=== PATIENT | female | born 1980 | race Caucasian/White ===

== ENCOUNTER 2016-09-22 05:31 | Day surgery (SDC) | payer OTHER ==
[~2016-09-22] VITALS: Ht 167.6 cm; Wt 75.0 kg
--- NOTE | ~2016-09-22 | O ---
[facility] [place] [address] OPERATIVE REPORT Name: DIANE NG Room #: DEP [facility] [place] MZuleyma.#: [id number] Admission: 09/22/16 Attend Phys: Pankaj Boland MD Discharge: 09/22/16 Date of : 84 Report #: [id number] THIS REPORT FOR: //name// CC: Lei Boland DATE OF SERVICE: 09/22/2016 PREOPERATIVE DIAGNOSES: 1. Left knee osteochondral defect, medial femoral condyle. 2. Osteochondral defect, lateral femoral condyle. 3. Osteochondral defect trochlea. POSTOPERATIVE DIAGNOSES: 1. Left knee osteochondral defect, medial femoral condyle. 2. Osteochondral defect, lateral femoral condyle. 3. Osteochondral defect trochlea. PROCEDURE: 1. Left knee osteochondral allograft transplantation to medial femoral condyle. 2. Osteochondral allograft transplant to lateral femoral condyle. 3. Osteochondral allograft transplant to trochlea. SURGEON: Pankaj Boland MD. MOTOR OVERHAULER: Eddie Varner, nurse practitioner. INDICATIONS FOR MOTOR OVERHAULER: During the course of operation, extensive manipulation, retraction, and limb positioning was required. This was afforded to me by my therapist's assistant. ANESTHETIC: General. INDICATIONS: See hospital H and P. DESCRIPTION OF PROCEDURE: After adequate general anesthesia had been obtained, the patient's left lower extremity was prepped and draped in the usual meticulous sterile fashion. The limb was exsanguinated with gravity. Tourniquet was inflated to 300 torr. An anterior midline incision was made. SubQ divided sharply. Hemostasis was obtained with electrocautery. Medial parapatellar incision was made. Infrapatellar fat pad was partially resected. The medial femoral condyle was exposed first. We sized the defect, and it measured approximately 22 mm in diameter. We placed the guide pin into position, and then reamed it to a depth of about 9 mm. Attention was then directed to the lateral femoral condyle. This process was [facility] [address] [place] [address] OPERATIVE REPORT Name: DIANE NG Room #: [facility]..#: [id number] Admission: 09/22/16 Attend Phys: Pankaj Boland MD Discharge: 09/22/16 Date of : 84 Report #: [id number]. We used an 18 mm drill guide as this encompassed the entire defect. The guidepin was placed. The defect was reamed to a depth of about 9 mm. Trochlear defect was then addressed. We measured and placed the guide pin. It also measured about 18 mm in diameter. We reamed this one to a depth of 5 mm proximal and distal and 12 mm medial and lateral. At this time, the knee was irrigated copiously, and irrigation was allowed to rest in the wound, and we deflated the tourniquet. Attention was directed to graft preparation. Each of the graft had been soaking in antibiotic saline. We used the vice to hold the medial femoral condyle in position. We then placed the drill guide into position and drilled out the graft. It was then measured meticulously and then cut to the appropriate depth. This was then placed back in to the antibiotic saline. This procedure was then repeated for the lateral femoral condyle and trochlear grafts. They likewise were placed back into bacitracin and saline. Attention was redirected to the knee, and then leg was gravity exsanguinated. The knee was irrigated copiously with antibiotic irrigation. The grafts were then sequentially put in position in the appropriate orientation. They all had an excellent press fit, so no further fixation was required to the knee through a range of motion, and no mechanical were noted. The knee was irrigated copiously once again. The retinacular layer was closed with a combination of interrupted [id number] #1 Vicryl, as well as running #1 Tevdek. SubQ closed with 2-0 Monocryl, skin closed with lnyette. Sterile compressive dressing was complied. Tourniquet deflated. <ELECTRONICALLY SIGNED> By: Pankaj Boland MD 09/26/16 [id number] Pankaj Boland MD /nt
[~2016-09-22 05:31] MED LIST: ADDERALL 20 MG20 M1 PO; ALEVE220 MG PO; CO Q-10100 MG PO; FISH OIL 1,001000 M2 PO; FLAXSEED OIL1000 M2 PO; GINKGO BILOBA30 MG PO; GINSENG100 MG PO; GLUCOSAMINE CH1 EAC2 PO; MUCINEX TA600 MG/TA2 PO; MULTIVITAMINS1 EAC7 PO; VYVANSE60 MG PO; YAZ 28 TABLET1 EACH PO
[2016-09-22 07:56] VITALS: BP 126/76
[2016-09-22 10:53] VITALS: BP 126/76
== END 2016-09-22 13:30 | disposition home or self-care (01) ==
LOC: OR 05:31 → TBA 05:31 → OR 08:43
DX: M21.862 Other specified acquired deformities of left lower leg (principal); M95.8 Other specified acquired deformities of musculoskeletal system; Z98.890 Other specified postprocedural states; Z88.8 Allergy status to other drugs, medicaments and biological substances
CPT/HCPCS: 50010; 50101; 50386; 50405; 50951; 50954; 51038; 52001; 53023; 53078; 55430; 56525; 56526; 56527; 59999; 62110; 62900; 64041; 64043; 70005

== ENCOUNTER → 2018-12-05 | Outpatient (CLI) | payer BC | LOC: ULTRA 12:33 | DX: E04.2 Nontoxic multinodular goiter (principal) ==

== ENCOUNTER → 2019-02-14 | Outpatient (CLI) | payer BC | LOC: CAT 09:51 | DX: M54.2 Cervicalgia (principal); R59.9 Enlarged lymph nodes, unspecified; K11.20 Sialoadenitis, unspecified; E04.1 Nontoxic single thyroid nodule ==